=== PATIENT | male | born 1955 | race Caucasian/White ===

== ENCOUNTER 2019-02-12 21:18 | Emergency (ER) | payer OTHER ==
[~2019-02-12] VITALS: Ht 188 cm; Wt 118.0 kg
[2019-02-12] MEDS ORDERED: NORVASC5 M1 PO (21:33)
[2019-02-12] MEDS ORDERED: ATORVASTATIN CA10 MG PO (21:34)
[2019-02-12] MEDS ORDERED: ZOLPIDEM10 MG PO (21:34)
[2019-02-12] MEDS ORDERED: PREVACID30 M1 PO (21:35)
[2019-02-12] MEDS ORDERED: BAYER ASPIRIN E81 MG PO (21:35)
[2019-02-12] MEDS ORDERED: DEPAKOTE500 MG PO (21:36)
[2019-02-12] MEDS ORDERED: IMITREX100 MG PO (21:37)
[2019-02-12 22:12] LABS: HEMATOCRIT 41.7 % (39.0-50.0); HEMOGLOBIN 13.7 g/dl (14.0-18.0); IMMATURE GRANULOCYTES 0.3 % (0.0-5.0); MEAN CELL VOLUME 88.7 fL CALC (80.0-100.0); MEAN CORPUSCULAR HGB 29.1 pG CALC (26.0-32.0); MEAN CORPUSCULAR HGB CONC 32.9 g/L CALC (32.0-36.0); NEUT# 5.03 thou/uL (1.82-7.42); RED BLOOD COUNT 4.7 mill/uL (4.70-6.10); RED CELL DISTRI WIDTH 13.2 % (11.5-15.5)
[2019-02-12 22:18] LABS: URINE BILIRUBIN - DIPSTICK NEGATIVE (NEGATIVE); URINE BLOOD DIPSTICK NEGATIVE (NEGATIVE); URINE COLOR YELLOW; URINE GLUCOSE - DIPSTICK NEGATIVE (NEGATIVE); URINE KETONE NEGATIVE (NEGATIVE); URINE LEUK ESTERASE NEGATIVE (NEGATIVE); URINE NITRITE - DIPSTICK NEGATIVE (Negative); URINE PH 5.5 (4.5-8.0); URINE PROTEIN - DIPSTICK NEGATIVE (NEG-TRACE); URINE SPECIFIC GRAVITY 1.025; URINE UROBILINOGEN - DIPSTICK 0.2 E.U./dL (0.2)
[2019-02-12 22:23] LABS: ALKALINE PHOSPHATASE 76 u/l (38-126); ANION GAP 13 (6-22 (CALC)); BILIRUBIN, TOTAL 0.3 mg/dL (0.0-1.4); BUN 14 mg/dL (8-23); BUN/CREATININE RATIO 15 (12-20 (CALC)); CARBON DIOXIDE 28 mmol/l (22-30); CHLORIDE 105 mmol/l (95-108); CREATININE 0.9 mg/dL (0.7-1.3); GFR > 60 ML/MIN (>=60 (CALC)); GFR FOR AFR.AMER. > 60 ML/MIN (>=60 (CALC)); LIPASE 91 u/l (23-300); POTASSIUM 4.4 mmol/l (3.5-5.1); SGOT/AST 26 u/l (19-48); SODIUM 141 mmol/l (137-146); TOTAL PROTEIN 7.2 g/dL (6.3-8.2)
[2019-02-12] MEDS ORDERED: FLEXERIL PO (23:59)
[2019-02-12] MEDS ORDERED: TRAMADOL HYDROC50 MG PO (23:59)
[2019-02-13 00:05] VITALS: BP 128/78
== END 2019-02-13 00:15 | disposition home or self-care (01) | DRG 552 ==
LOC: ED 21:18
DX: M54.9 Dorsalgia, unspecified (principal); N20.0 Calculus of kidney

== ENCOUNTER 2021-11-13 09:45 | Emergency (ER) | payer MEDICARE, OTHER ==
[2021-11-13] VITALS (13 sets, daily range): BP systolic 121–145; BP diastolic 75–96
[~2021-11-13] VITALS: Ht 188 cm; Wt 120.9 kg
[~2021-11-13 09:45] MED LIST: ATORVASTATIN CA10 MG PO; BAYER ASPIRIN E81 MG PO; DEPAKOTE500 MG PO; FLEXERIL PO; IMITREX100 MG PO; NORVASC5 M1 PO; PREVACID30 M1 PO; TRAMADOL HYDROC50 MG PO; ZOLPIDEM10 MG PO
[2021-11-13] MEDS ORDERED: MONTELUKAST SOD10 MG PO (10:32)
[2021-11-13] MEDS ORDERED: CLONAZEPAM1 MG PO (10:34)
[2021-11-13] MEDS ORDERED: MAXALT-MLT10 MG PO (10:35)
[2021-11-13] MEDS ORDERED: EMGALITY120 MG/M1 IM (10:39)
[2021-11-13 10:51] LABS: URINE BLOOD DIPSTICK LARGE (NEGATIVE); URINE COLOR YELLOW; URINE GLUCOSE - DIPSTICK NEGATIVE (NEGATIVE); URINE KETONE 15 mg/dL (NEGATIVE); URINE LEUK ESTERASE NEGATIVE (NEGATIVE); URINE PROTEIN - DIPSTICK 30 mg/dL (NEG-TRACE); URINE SPECIFIC GRAVITY >=1.030; URINE UROBILINOGEN - DIPSTICK 0.2 E.U./dL (0.2)
[2021-11-13 10:54] LABS: URINE BILIRUBIN - DIPSTICK SMALL (NEGATIVE)
[2021-11-13 10:55] LABS: URINE NITRITE - DIPSTICK NEGATIVE (Negative)
[2021-11-13 10:58] LABS: URINE RBC >100 RBC/hpf (0-5); URINE WBC 0-2 WBC/hpf (0-5)
[2021-11-13 11:11] LABS: HEMATOCRIT 38.5 % (39.0-50.0); HEMOGLOBIN 12.2 g/dl (14.0-18.0); IMMATURE GRANULOCYTES 0.1 % (0.0-5.0); MEAN CORPUSCULAR HGB 25.8 pG CALC (26.0-32.0); MEAN CORPUSCULAR HGB CONC 31.7 g/dL CAL (32.0-36.0); NEUT# 4.7 thou/uL (1.82-7.42); RED BLOOD COUNT 4.73 mill/uL (4.70-6.10); RED CELL DISTRI WIDTH 17.6 % (11.5-15.5)
[2021-11-13 11:13] LABS: MEAN CELL VOLUME 81.4 fL CALC (80.0-100.0)
[2021-11-13 11:29] LABS: ALKALINE PHOSPHATASE 74 u/l (38-126); ANION GAP 12 (6-22 (CALC)); BILIRUBIN, TOTAL 0.3 mg/dL (0.0-1.4); BUN 13 mg/dL (8-23); BUN/CREATININE RATIO 13 (12-20 (CALC)); CARBON DIOXIDE 23 mmol/l (22-30); CHLORIDE 106 mmol/l (95-108); GFR FOR AFR.AMER. > 60 ML/MIN (>=60 (CALC)); GFR OTHER RACES > 60 ML/MIN (>=60 (CALC)); LIPASE 50 u/l (23-300); POTASSIUM 3.9 mmol/l (3.5-5.1); SGOT/AST 35 u/l (19-48); SODIUM 138 mmol/l (137-146); TOTAL PROTEIN 7.3 g/dL (6.3-8.2)
[2021-11-13] MEDS ORDERED: TAMSULOSIN0.4 MG PO (12:56)
[2021-11-13] MEDS ORDERED: NAPROXEN500 MG PO (12:56)
[2021-11-13] MEDS ORDERED: LORTAB 1010 MG PO (12:56)
== END 2021-11-13 13:40 | disposition home or self-care (01) ==
LOC: ED 09:45
PROVIDERS: Family Medicine
DX: N20.0 Calculus of kidney (principal); I10 Essential (primary) hypertension; E78.5 Hyperlipidemia, unspecified; F41.9 Anxiety disorder, unspecified; K21.9 Gastro-esophageal reflux disease without esophagitis; Z86.14 Personal history of Methicillin resistant Staphylococcus aureus infection
CPT/HCPCS: Q9967

== ENCOUNTER 2021-12-22 11:43 | Day surgery (SDC) | payer MEDICARE, OTHER ==
[~2021-12-22] VITALS: Ht 188 cm; Wt 122.5 kg
[~2021-12-22 11:43] MED LIST changes: +CLONAZEPAM1 MG PO; +EMGALITY120 MG/M1 IM; +LORTAB 1010 MG PO; +MAXALT-MLT10 MG PO; +MONTELUKAST SOD10 MG PO; +NAPROXEN500 MG PO; +PHILLIPS COLON HEALT PO; +PREVAGEN EXTRA20 MG PO; +TAMSULOSIN0.4 MG PO
[2021-12-22] MEDS ORDERED: LORTAB 1010 MG PO (15:32)
[2021-12-22] MEDS ORDERED: NAPROXEN500 MG PO (15:32)
[2021-12-22 16:05] VITALS: BP 142/69
== END 2021-12-22 16:00 | disposition home or self-care (01) ==
LOC: ORM 11:43
PROVIDERS: ATTEND Urology
PROC: 0TF3XZZ Fragmentation in Right Kidney Pelvis, External Approach (ICD-10-PCS; principal; 2021-12-22)
DX: N20.0 Calculus of kidney (principal); I10 Essential (primary) hypertension; E78.00 Pure hypercholesterolemia, unspecified; K21.9 Gastro-esophageal reflux disease without esophagitis; G47.30 Sleep apnea, unspecified; F41.9 Anxiety disorder, unspecified
CPT/HCPCS: J0131; J1956

== ENCOUNTER 2022-03-02 06:25 | Day surgery (SDC) | payer MEDICARE, OTHER ==
[~2022-03-02] VITALS: Ht 188 cm; Wt 126.1 kg
[~2022-03-02 06:25] MED LIST changes: +TRAMADOL HCL50 MG PO
[2022-03-02 10:15] VITALS: BP 158/71
== END 2022-03-02 11:40 | disposition home or self-care (01) ==
LOC: ORM 06:25
PROVIDERS: ATTEND Urology
PROC: 0TC38ZZ Extirpation of Matter from Right Kidney Pelvis, Via Natural or Artificial Opening Endoscopic (ICD-10-PCS; principal; 2022-03-02)
PROC: 0T768DZ Dilation of Right Ureter with Intraluminal Device, Via Natural or Artificial Opening Endoscopic (ICD-10-PCS; 2022-03-02)
DX: N20.0 Calculus of kidney (principal); I10 Essential (primary) hypertension; K21.9 Gastro-esophageal reflux disease without esophagitis; E78.00 Pure hypercholesterolemia, unspecified; F41.9 Anxiety disorder, unspecified
CPT/HCPCS: J0131; J1956; Q9966

== ENCOUNTER 2024-06-11 15:35 | Inpatient (IN) | payer MEDICARE, OTHER ==
[2024-06-11] VITALS (10 sets, daily range): BP systolic 123–145; BP diastolic 65–96
[~2024-06-11] VITALS: Ht 188 cm; Wt 113.0 kg
[~2024-06-11 15:35] MED LIST changes: +LEVOCETIRIZINE D5 MG PO; +LISINOPRIL10 MG PO; +PREVAGEN10 MG PO; +RYBELSUS7 MG PO; +TRAMADOL HYDROC50 M1 PO
[2024-06-11] MEDS ORDERED: diazePAM 10 MG/2 ML VIAL IV ONE (15:55)
[2024-06-11] MEDS ORDERED: KETOROLAC TROMETHAMINE 30 MG/ML SDV IV ONE (15:55)
[2024-06-11] MEDS ORDERED: Acetaminophen 300 MG/Codeine 30 MG/COMBO PO ONE (15:55)
[2024-06-11 16:10] LABS: BASO% 0.1 % (0-3); EOS% 0.2 % (0-8); IMMATURE GRANULOCYTES 0.5 % (0.0-5.0); LYMPH% 8.5 % (15-41); MEAN CELL VOLUME 89.9 fL CALC (80.0-100.0); MEAN CORPUSCULAR HGB 28.1 pG CALC (26.0-32.0); MEAN CORPUSCULAR HGB CONC 31.3 g/dL CAL (32.0-36.0); MONO% 11.8 % (2-13); NEUT# 13.17 thou/uL (1.82-7.42); NEUT% 78.9 % (42-76); RED BLOOD COUNT 5.34 mill/uL (4.70-6.10)
[2024-06-11 16:20] LABS: ALBUMIN 4.2 g/dL (3.2-5.0); ALKALINE PHOSPHATASE 87 u/l (38-126); ANION GAP 13 (6-22 (CALC)); BILIRUBIN, TOTAL 0.8 mg/dL (0.2-1.3); BUN 13 mg/dL (8-23); BUN/CREATININE RATIO 13 (12-20 (CALC)); CARBON DIOXIDE 27 mmol/l (22-30); CHLORIDE 101 mmol/l (95-108); ESTIMATED GFR 82 ML/MIN (>=90 (CALC)); LIPASE 40 u/l (23-300); POTASSIUM 4.5 mmol/l (3.5-5.1); SGOT/AST 34 u/l (19-48); SODIUM 137 mmol/l (137-146); TOTAL PROTEIN 7.6 g/dL (6.3-8.2)
[2024-06-11] MEDS ORDERED: Heparin SODIUM (Porcine) 5,000 UNITS/ML SDV IV ONE (18:30)
[2024-06-11] MEDS ORDERED: Heparin SODIUM (Porcine) 500 ML IV SCH ×2 (18:30→19:55)
[2024-06-11] MEDS ORDERED: CYCLOBENZAPRINE10 MG PO (18:37)
[2024-06-11 20:16] LABS: BASO% 0.3 % (0-3); EOS% 0.4 % (0-8); HEMATOCRIT 44.2 % (39.0-50.0); IMMATURE GRANULOCYTES 0.1 % (0.0-5.0); MEAN CELL VOLUME 89.8 fL CALC (80.0-100.0); MEAN CORPUSCULAR HGB 28.5 pG CALC (26.0-32.0); MEAN CORPUSCULAR HGB CONC 31.7 g/dL CAL (32.0-36.0); MONO% 13.1 % (2-13); NEUT# 9.99 thou/uL (1.82-7.42); NEUT% 72.1 % (42-76); RED BLOOD COUNT 4.92 mill/uL (4.70-6.10)
[2024-06-11 20:38] LABS: INTERNATIONAL NORMALIZED RATIO 1.1 RATIO (0.7-1.3)
[2024-06-11 20:51] LABS: PROTHROMBIN TIME 11.8 SECONDS (9.0-12.5)
[2024-06-11] MEDS ORDERED: ACETAMINOPHEN 325 MG/TAB PO PRN (20:55)
[2024-06-11] MEDS ORDERED: Zaleplon 5 MG/CAP PO PRN (20:55)
[2024-06-11] MEDS ORDERED: MAGNESIUM HYDROXIDE 30 ML UDC PO PRN (20:55)
[2024-06-11] MEDS ORDERED: clonazePAM 1 MG/TAB PO PRN (21:00)
[2024-06-11] MEDS ORDERED: TIZANIDINE HYDRO2 MG (21:15)
[2024-06-11] MEDS ORDERED: MORPHINE SULFATE 4 MG/ML VIAL IV PRN (22:10)
[2024-06-12] MEDS ORDERED: Heparin SODIUM (Porcine) 5,000 UNITS/ML SDV IV ONE (03:55)
[2024-06-12 04:22] VITALS: BP 130/77
[2024-06-12 05:28] LABS: BASO% 0.5 % (0-3); EOS% 0.8 % (0-8); HEMATOCRIT 41.6 % (39.0-50.0); HEMOGLOBIN 13.5 g/dl (14.0-18.0); IMMATURE GRANULOCYTES 0.3 % (0.0-5.0); LYMPH% 12.2 % (15-41); MEAN CELL VOLUME 89.3 fL CALC (80.0-100.0); MEAN CORPUSCULAR HGB CONC 32.5 g/dL CAL (32.0-36.0); MONO% 12.7 % (2-13); NEUT# 8.66 thou/uL (1.82-7.42); NEUT% 73.5 % (42-76); RED BLOOD COUNT 4.66 mill/uL (4.70-6.10); RED CELL DISTRI WIDTH 13.2 % (11.5-15.5)
[2024-06-12 06:16] LABS: ALBUMIN 3.4 g/dL (3.2-5.0); BILIRUBIN, TOTAL 0.5 mg/dL (0.2-1.3); CHOLESTEROL HDL RATIO 3.6 (<4.4 (CALC)); CREATININE 0.8 mg/dL (0.7-1.3); MAGNESIUM 1.9 mg/dL (1.6-2.3); POTASSIUM 4.5 mmol/l (3.5-5.1); TOTAL PROTEIN 6.5 g/dL (6.3-8.2)
[2024-06-12 06:52] VITALS: BP 122/62
[2024-06-12] MEDS ORDERED: PANTOPRAZOLE SODIUM Sesquihydr 40 MG/TAB PO SCH (09:00)
[2024-06-12 10:24] LABS: URINE BILIRUBIN - DIPSTICK Negative (NEGATIVE); URINE BLOOD DIPSTICK Negative (NEGATIVE); URINE GLUCOSE - DIPSTICK Negative (NEGATIVE); URINE KETONE 40 mg/dL (NEGATIVE); URINE LEUK ESTERASE Negative (NEGATIVE); URINE NITRITE - DIPSTICK Negative (Negative); URINE PROTEIN - DIPSTICK 30 mg/dL (NEG-TRACE); URINE UROBILINOGEN - DIPSTICK 0.2 E.U./dL (0.2)
[2024-06-12 10:33] LABS: URINE COLOR Yellow
[2024-06-12 10:34] LABS: URINE MUCUS MANY hpf (NONE-FEW)
[2024-06-12] MEDS ORDERED: APIXABAN BASE 5 MG TAB PO SCH (11:30)
[2024-06-12 12:03] VITALS: BP 130/83
[2024-06-12] MEDS ORDERED: HYDROcodone 5 MG/Acetaminophen 325 MG/COMBO PO PRN (16:45)
[2024-06-12 19:04] VITALS: BP 141/87
[2024-06-12 23:28] VITALS: BP 136/81
[2024-06-13 04:13] VITALS: BP 126/65
[2024-06-13 05:14] LABS: BASO% 0.4 % (0-3); EOS% 1.7 % (0-8); IMMATURE GRANULOCYTES 0.2 % (0.0-5.0); LYMPH% 15.2 % (15-41); MEAN CELL VOLUME 90.3 fL CALC (80.0-100.0); MEAN CORPUSCULAR HGB 28.6 pG CALC (26.0-32.0); MEAN CORPUSCULAR HGB CONC 31.7 g/dL CAL (32.0-36.0); MONO% 11.9 % (2-13); NEUT# 6.84 thou/uL (1.82-7.42); NEUT% 70.6 % (42-76); RED BLOOD COUNT 4.54 mill/uL (4.70-6.10)
[2024-06-13 05:22] LABS: ALBUMIN 3.2 g/dL (3.2-5.0); BILIRUBIN, TOTAL 0.5 mg/dL (0.2-1.3); CREATININE 0.8 mg/dL (0.7-1.3); MAGNESIUM 1.9 mg/dL (1.6-2.3); POTASSIUM 4.6 mmol/l (3.5-5.1); TOTAL PROTEIN 6.2 g/dL (6.3-8.2)
[2024-06-13 07:00] VITALS: BP 142/69
[2024-06-13] MEDS ORDERED: ELIQUIS5 MG PO (08:39)
== END 2024-06-13 09:54 | DRG 176 ==
LOC: ED 15:35 → ED-I 18:00 → ED 18:31 → MS2 18:32
PROVIDERS: Nurse Practitioner; Nurse Practitioner Family; ADMIT Internal Medicine; ATTEND Internal Medicine
DX: I26.99 Other pulmonary embolism without acute cor pulmonale (principal); R09.02 Hypoxemia; I10 Essential (primary) hypertension; E11.42 Type 2 diabetes mellitus with diabetic polyneuropathy; E78.5 Hyperlipidemia, unspecified; M21.371 Foot drop, right foot; Z86.14 Personal history of Methicillin resistant Staphylococcus aureus infection; Z91.81 History of falling; Z79.84 Long term (current) use of oral hypoglycemic drugs
CPT/HCPCS: J1644; J3360; Q9967

== ENCOUNTER 2024-06-25 14:44 | Emergency (ER) | payer MEDICARE, OTHER ==
[~2024-06-25] VITALS: Ht 188 cm; Wt 113.7 kg
[~2024-06-25 14:44] MED LIST changes: +CYCLOBENZAPRINE10 MG PO; +ELIQUIS5 MG PO; +TIZANIDINE HYDRO2 MG
[2024-06-25] MEDS ORDERED: ONDANSETRON HCl 4 MG/2 ML SDV IV ONE (15:10)
[2024-06-25 17:16] VITALS: BP 144/89
== END 2024-06-25 17:35 | disposition home or self-care (01) ==
LOC: ED 14:44
DX: S09.90XA Unspecified injury of head, initial encounter (principal); I10 Essential (primary) hypertension; E78.5 Hyperlipidemia, unspecified; R73.03 Prediabetes; Y92.39 Other specified sports and athletic area as the place of occurrence of the external cause; W18.39XA Other fall on same level, initial encounter; Z79.01 Long term (current) use of anticoagulants; Z86.711 Personal history of pulmonary embolism; Z79.84 Long term (current) use of oral hypoglycemic drugs
CPT/HCPCS: J2405